=== PATIENT | female | born 2000 | race Caucasian/White ===

== ENCOUNTER 2021-06-13 00:03 | Outpatient (CLI) | payer OTHER | END 2021-06-13 05:21 | disposition home or self-care (01) | LOC: GENOP 00:03 | DX: O99.891 Other specified diseases and conditions complicating pregnancy (principal); R10.30 Lower abdominal pain, unspecified; M54.9 Dorsalgia, unspecified; O98.513 Other viral diseases complicating pregnancy, third trimester; U07.1 COVID-19; O21.2 Late vomiting of pregnancy; Z3A.35 35 weeks gestation of pregnancy | CPT/HCPCS: 81001; 96360; 96361; 96367; J2405; J7120 ==

== ENCOUNTER 2021-06-30 19:25 | Inpatient (IN) | payer OTHER ==
[~2021-06-30] VITALS: Ht 152.4 cm; Wt 81.6 kg
[2021-07-01 05:14] LABS: HEMOGLOBIN 8.7 gm/dl (12.3-15.3); RED BLOOD COUNT 4.05 M/UL (4.00-5.10); WHITE BLOOD COUNT 8.5 K/UL (4.5-11.0)
[2021-07-01] MEDS ORDERED: PROTONIX20 MG PO (07:12)
[2021-07-02 07:05] LABS: HEMOGLOBIN 8.5 gm/dl (12.3-15.3)
== END 2021-07-02 16:05 | disposition home or self-care (01) | DRG 806 ==
LOC: GENOP 19:25 → OB 07-01 04:00
PROVIDERS: ADMIT Obstetrics & Gynecology
PROC: 10E0XZZ Delivery of Products of Conception, External Approach (ICD-10-PCS; principal; 2021-07-01)
PROC: 0KQM0ZZ Repair Perineum Muscle, Open Approach (ICD-10-PCS; 2021-07-01)
DX: O99.02 Anemia complicating childbirth (principal); O98.82 Other maternal infectious and parasitic diseases complicating childbirth; Z37.0 Single live birth; D64.9 Anemia, unspecified; O70.1 Second degree perineal laceration during delivery; Z98.890 Other specified postprocedural states; Z3A.37 37 weeks gestation of pregnancy
CPT/HCPCS: 36415; 36600; 51702; 81001; 82800; 83518; 85014; 85018; 85025; 90707; 90715; J0595; J2001; J2590; J2795